=== PATIENT | female | born 1950 | race Two or more races ===

== ENCOUNTER 2017-06-16 08:56 | Outpatient (CLI) | payer OTHER ==
[~2017-06-16 08:56] MED LIST: COREG CR10 MG PO; EVISTA60 MG PO; NABUMETONE500 MG PO; NEURONTIN600 MG PO; NEUROTIN; PERCOCET 5/3251 TAB PO; PROTONIX20 MG PO; SYNTHROID50 MCG PO; ULTRACET PO
== END 2017-06-16 09:02 | disposition home or self-care (01) ==
LOC: RAD 08:56
DX: R05 Cough (principal); J41.1 Mucopurulent chronic bronchitis

== ENCOUNTER 2017-08-29 05:55 | Day surgery (SDC) | payer OTHER | END 2017-08-29 09:35 | disposition home or self-care (01) | LOC: AMB-ENDOS 05:55 | DX: K57.30 Diverticulosis of large intestine without perforation or abscess without bleeding (principal); K64.1 Second degree hemorrhoids; K62.1 Rectal polyp ==

== ENCOUNTER 2017-09-20 08:59 | Outpatient (CLI) | payer OTHER | END 2017-09-20 09:02 | disposition home or self-care (01) | LOC: SONOGRAMA 08:59 | DX: E21.2 Other hyperparathyroidism (principal); E04.1 Nontoxic single thyroid nodule; E83.52 Hypercalcemia ==

== ENCOUNTER 2017-09-22 09:49 | Outpatient (CLI) | payer OTHER | END 2017-09-22 11:00 | disposition home or self-care (01) | LOC: NUCLEAR 09:49 | DX: E21.2 Other hyperparathyroidism (principal); E83.52 Hypercalcemia | CPT/HCPCS: 78070; A9500 ==

== ENCOUNTER 2017-12-12 08:40 | Outpatient (CLI) | payer OTHER | END 2017-12-12 09:15 | disposition home or self-care (01) | LOC: SONOGRAMA 08:40 | DX: E03.4 Atrophy of thyroid (acquired) (principal) ==

== ENCOUNTER 2018-01-27 10:07 | Outpatient (CLI) | payer OTHER | END 2018-01-27 10:15 | disposition home or self-care (01) | LOC: RAD 10:07 | DX: M54.6 Pain in thoracic spine (principal) ==

== ENCOUNTER 2018-01-27 11:03 | Outpatient (CLI) | payer OTHER | END 2018-01-27 11:33 | disposition home or self-care (01) | LOC: SONOGRAMA 11:03 | DX: M25.512 Pain in left shoulder (principal) ==

== ENCOUNTER 2018-07-21 09:50 | Outpatient (CLI) | payer OTHER | END 2018-07-21 10:00 | disposition home or self-care (01) | LOC: RAD 09:50 | DX: I11.9 Hypertensive heart disease without heart failure (principal) ==

== ENCOUNTER 2018-11-14 09:44 | Outpatient (CLI) | payer OTHER | END 2018-11-14 09:46 | disposition home or self-care (01) | LOC: RAD 09:44 | DX: Z96.652 Presence of left artificial knee joint (principal) ==

== ENCOUNTER 2019-02-28 12:10 | Outpatient (CLI) | payer OTHER | END 2019-02-28 12:12 | disposition home or self-care (01) | LOC: RAD 12:10 | DX: M54.6 Pain in thoracic spine (principal); M54.5 Low back pain ==

== ENCOUNTER 2019-04-27 05:35 | Day surgery (SDC) | payer OTHER ==
[~2019-04-27 05:35] MED LIST changes: +TIZANIDINE HCL2 MG PO
[2019-04-27] MEDS ORDERED: PERCOCET 5-3251 EACH PO (08:29)
== END 2019-04-27 10:01 | disposition home or self-care (01) ==
LOC: CIR.AMB 05:35
DX: R15.9 Full incontinence of feces (principal)
CPT/HCPCS: 64590; C1767

== ENCOUNTER → 2019-05-25 | Outpatient (CLI) | payer OTHER ==
[~2019-05-25] MED LIST changes: +PERCOCET 5-3251 EACH PO
== END | disposition home or self-care (01) ==
LOC: TOM 08:29
DX: R10.11 Right upper quadrant pain (principal); R10.12 Left upper quadrant pain; R07.89 Other chest pain

== ENCOUNTER 2019-05-31 09:15 | Outpatient (CLI) | payer OTHER | END 2019-05-31 09:17 | disposition home or self-care (01) | LOC: SONOGRAMA 09:15 | DX: C79.19 Secondary malignant neoplasm of other urinary organs (principal); R10.11 Right upper quadrant pain; R10.12 Left upper quadrant pain ==

== ENCOUNTER 2019-06-25 07:14 | Outpatient (CLI) | payer OTHER | END 2019-06-25 08:57 | disposition home or self-care (01) | LOC: NUCLEAR 07:14 | DX: M81.0 Age-related osteoporosis without current pathological fracture (principal); M85.80 Other specified disorders of bone density and structure, unspecified site | CPT/HCPCS: 77080; 78072; A9500 ==

== ENCOUNTER 2019-06-28 08:34 | Outpatient (CLI) | payer OTHER | END 2019-06-28 08:38 | disposition home or self-care (01) | LOC: NUCLEAR 08:34 | DX: E83.52 Hypercalcemia (principal); E78.00 Pure hypercholesterolemia, unspecified; M85.80 Other specified disorders of bone density and structure, unspecified site; M46.47 Discitis, unspecified, lumbosacral region | CPT/HCPCS: 78306; A9503 ==

== ENCOUNTER 2019-07-10 10:28 | Outpatient (CLI) | payer OTHER | END 2019-07-10 10:35 | disposition home or self-care (01) | LOC: LAB 10:28 | DX: N20.0 Calculus of kidney (principal) ==

== ENCOUNTER 2019-07-10 10:58 | Outpatient (CLI) | payer OTHER | END 2019-07-10 11:03 | disposition home or self-care (01) | LOC: TOM 10:58 | DX: N28.1 Cyst of kidney, acquired (principal) | CPT/HCPCS: 74178; Q9965 ==

== ENCOUNTER 2019-07-23 08:11 | Outpatient (CLI) | payer OTHER | END 2019-07-23 09:52 | disposition home or self-care (01) | LOC: NUCLEAR 08:11 | DX: D35.1 Benign neoplasm of parathyroid gland (principal); E03.4 Atrophy of thyroid (acquired); E21.3 Hyperparathyroidism, unspecified | CPT/HCPCS: 78070; A9500 ==

== ENCOUNTER 2020-11-04 15:55 | Outpatient (CLI) | payer OTHER | END 2020-11-04 16:01 | disposition home or self-care (01) | LOC: SONOGRAMA 15:55 | PROVIDERS: ATTEND Physical Medicine & Rehabilitation | DX: E03.4 Atrophy of thyroid (acquired) (principal) ==

== ENCOUNTER 2020-12-01 07:32 | Outpatient (CLI) | payer OTHER | END 2020-12-01 07:38 | disposition home or self-care (01) | LOC: SONOGRAMA 07:32 | PROVIDERS: ATTEND Pathology Anatomic Pathology & Clinical Pathology | DX: E04.0 Nontoxic diffuse goiter (principal); D34 Benign neoplasm of thyroid gland ==

== ENCOUNTER 2021-04-29 09:06 | Outpatient (CLI) | payer OTHER | END 2021-04-29 09:10 | disposition home or self-care (01) | LOC: RAD 09:06 | PROVIDERS: ATTEND Internal Medicine | DX: M13.871 Other specified arthritis, right ankle and foot (principal); M79.671 Pain in right foot ==

== ENCOUNTER 2021-12-15 15:31 | Outpatient (CLI) | payer OTHER | END 2021-12-15 15:37 | disposition home or self-care (01) | LOC: RAD 15:31 | PROVIDERS: ATTEND Internal Medicine | DX: M79.641 Pain in right hand (principal) ==

== ENCOUNTER 2022-03-11 09:03 | Outpatient (CLI) | payer OTHER | END 2022-03-11 09:07 | disposition home or self-care (01) | LOC: NUCLEAR 09:03 | PROVIDERS: ATTEND Internal Medicine | DX: M85.80 Other specified disorders of bone density and structure, unspecified site (principal); Z88.0 Allergy status to penicillin; Z88.8 Allergy status to other drugs, medicaments and biological substances ==

== ENCOUNTER 2022-03-16 07:49 | Outpatient (CLI) | payer OTHER | END 2022-03-16 07:52 | disposition home or self-care (01) | LOC: SONOGRAMA 07:49 | PROVIDERS: ATTEND Internal Medicine | DX: K82.9 Disease of gallbladder, unspecified (principal) ==

== ENCOUNTER 2023-01-28 06:42 | Day surgery (SDC) | payer OTHER ==
[~2023-01-28] VITALS: Ht 154.9 cm; Wt 81.6 kg
== END 2023-01-28 15:15 | disposition home or self-care (01) ==
LOC: CIR.AMB 06:42
PROVIDERS: ATTEND Surgery
DX: R15.9 Full incontinence of feces (principal); K62.5 Hemorrhage of anus and rectum; K64.0 First degree hemorrhoids; Z20.822 Contact with and (suspected) exposure to COVID-19; I10 Essential (primary) hypertension; Z88.0 Allergy status to penicillin
CPT/HCPCS: 64590; 64581; 95972; C1767

== ENCOUNTER → 2023-03-21 | Outpatient (CLI) | payer OTHER | END | disposition home or self-care (01) | LOC: TOM 10:24 | PROVIDERS: ATTEND Internal Medicine | DX: M54.30 Sciatica, unspecified side (principal); M54.50 Low back pain, unspecified ==

== ENCOUNTER 2023-07-21 07:47 | Outpatient (CLI) | payer OTHER | END 2023-07-21 07:50 | disposition home or self-care (01) | LOC: RAD 07:47 | PROVIDERS: ATTEND Internal Medicine | DX: M79.674 Pain in right toe(s) (principal); M79.675 Pain in left toe(s) ==

== ENCOUNTER 2023-08-29 07:13 | Outpatient (CLI) | payer OTHER | END 2023-08-29 07:32 | disposition home or self-care (01) | LOC: TOM 07:13 | PROVIDERS: ATTEND Urology | DX: C64.9 Malignant neoplasm of unspecified kidney, except renal pelvis (principal) | CPT/HCPCS: 74178; Q9965 ==

== ENCOUNTER 2024-01-05 07:45 | Outpatient (CLI) | payer OTHER | END 2024-01-05 07:56 | disposition home or self-care (01) | LOC: RAD 07:45 | PROVIDERS: ATTEND Internal Medicine | DX: M17.0 Bilateral primary osteoarthritis of knee (principal) ==

== ENCOUNTER 2024-01-09 09:14 | Emergency (ER) | payer OTHER ==
[~2024-01-09] VITALS: Ht 154.9 cm; Wt 83.9 kg
[2024-01-09] MEDS ORDERED: KETOROLAC TROMETHAMINE 30 MG VIAL IM STA (10:22)
[2024-01-09] MEDS ORDERED: DEXAMETHASONE SODIUM PHOSPHATE 4 MG/ML VIAL IM STA (10:23)
[2024-01-09] MEDS ORDERED: ORPHENADRINE CITRATE 30 MG/ML AMPUL IM STA (10:23)
== END 2024-01-09 11:03 | disposition home or self-care (01) ==
LOC: ER 09:15
DX: M54.32 Sciatica, left side (principal); Z88.0 Allergy status to penicillin
CPT/HCPCS: 96372; 99282; J1100; J1885; J2360

== ENCOUNTER 2024-01-23 13:19 | Outpatient (CLI) | payer OTHER | END 2024-01-23 13:27 | disposition home or self-care (01) | LOC: TOM 13:19 | PROVIDERS: ATTEND Physical Medicine & Rehabilitation | DX: M54.50 Low back pain, unspecified (principal); M54.16 Radiculopathy, lumbar region ==

== ENCOUNTER 2024-04-06 08:39 | Outpatient (CLI) | payer OTHER | END 2024-04-06 08:45 | disposition home or self-care (01) | LOC: RAD 08:39 | PROVIDERS: ATTEND Orthopaedic Surgery Adult Reconstructive Orthopaedic Surgery | DX: I11.9 Hypertensive heart disease without heart failure (principal) ==

== ENCOUNTER 2024-12-29 11:58 | Inpatient (IN) | payer OTHER ==
[~2024-12-29] VITALS: Ht 157.5 cm; Wt 68.0 kg
[2024-12-29] MEDS ORDERED: 0.9 % SODIUM CHLORIDE 1,000 ML IV SCH ×3 (14:45→22:00)
[2024-12-29] MEDS ORDERED: ONDANSETRON HCL 2 MG/ML VIAL IV ONE (14:45)
[2024-12-29] MEDS ORDERED: FAMOTIDINE/PF 20 MG/2 ML VIAL IV PUSH ONE (14:45)
[2024-12-29] MEDS ORDERED: ONDANSETRON HCL 2 MG/ML VIAL ONE (15:16)
[2024-12-29] MEDS ORDERED: FAMOTIDINE/PF 20 MG/2 ML VIAL ONE (15:16)
[2024-12-29 16:01] LABS: BASO % 0.5 % (0.1-1.2); EOS # 0.00 (0.04-0.54); EOS % 0.0 % (0.7-7.0); LYMPH # 0.99 (1.18-3.74); LYMPH % 11.4 % (19.3-53.1); MEAN PLATELET VOLUME 10.40 fl (9.4-12.4); MONO # 0.50 (0.24-0.82); MONO % 5.8 % (4.7-12.5); NEUT # 7.08 (1.56-6.13); NEUT % 81.8 % (34.0-71.1); RED CELL DISTRIBUTION WIDTH 14.6 % (11.6-14.4)
[2024-12-29 16:39] LABS: ALT/SGPT 17.0 U/L (12-78); AST/SGOT 9.0 U/L (15-37); BILIRUBIN TOTAL 0.78 mg/dL (0.3-1.2); BILIRUBIN,CONJUGATED 0.18 mg/dL (0.0-0.2); BUN CREA RATIO 22.0 (7.0-25.0); CREATININE SERUM 1.15 mg/dL (0.55-1.02); GFR 46.38; GLOBULINA 3.7 G/DL (2.4-3.5)
[2024-12-29 17:14] LABS: GLUCOSE FASTING 489.0 mg/dL (65-100); OSMOLALITY SERUM 298.0 MOSM/KG (275-295)
[2024-12-29] MEDS ORDERED: INSULIN LISPRO 1,000 UNIT/10 ML UNITS SUBCUTANEO STA (17:31)
[2024-12-29 18:29] LABS: URINE APPEARANCE Cloudy; URINE BILIRRUBIN Negative (NEGATIVE); URINE BLOOD Trace; URINE COLOR Yellow; URINE LEUKOCYTE Trace; URINE NITRATE Negative; URINE UROBILINOGEN 0.2 E.U./dl
[2024-12-29 18:33] LABS: URINE BACTERIA 230.3 uL (0.0-1933); URINE CAST 2.49 uL (0.0-1.40); URINE EPITHELIAL CELLS 38.9 uL (0.0-38.8); URINE RBC 222.1 uL (0.0-20.8); URINE WBC 253.3 uL (0.0-23.2)
[2024-12-29 18:47] LABS: URINE GLUCOSE >=1000 MG/DL (NEGATIVE); URINE KETONE >=160 (NEGATIVE); URINE PROTEIN 100 (NEGATIVE)
[2024-12-29 18:48] LABS: URINE YEAST MANY /hpf
[2024-12-29 18:50] LABS: ABG PH 7.238 (7.35-7.45); ABG PO2 121.0 mmHg (80-100); BICARBONATE 6.0 mmol/l (23-25)
[2024-12-29] MEDS ORDERED: ONDANSETRON HCL 4 MG in 0.9 % SODIUM CHLORIDE 50 ML IV PRN (19:30)
[2024-12-29] MEDS ORDERED: INSULIN REGULAR, HUMAN 100 UNITS in 0.9 % SODIUM CHLORIDE 100 ML IV SCH (19:45)
[2024-12-29 19:51] LABS: o2 21 %
[2024-12-29] MEDS ORDERED: POTASSIUM CHLORIDE IN WATER 100 ML IV ONE (20:15)
[2024-12-29 22:48] VITALS: BP 135/85
[2024-12-29] MEDS ORDERED: ACETAMINOPHEN 325 MG TABLET PO PRN (23:00)
[2024-12-29 23:58] VITALS: BP 105/73; O2SAT 100
[2024-12-30 04:00] VITALS: BP 113/75; O2SAT 98
[2024-12-30 05:12] LABS: COVID-19 AG NEGATIVE (NEGATIVE)
[2024-12-30 05:31] LABS: OSMOLALITY SERUM 299.0 MOSM/KG (275-295)
[2024-12-30 05:38] LABS: TSH 0.8 uIU/mL (0.358-3.74)
[2024-12-30 05:39] LABS: GLUCOSE FASTING 227.0 mg/dL (65-100)
[2024-12-30 05:52] LABS: BUN CREA RATIO 27.0 (7.0-25.0); CREATININE SERUM 0.78 mg/dL (0.55-1.02); GFR 72.6
[2024-12-30] MEDS ORDERED: LEVOTHYROXINE SODIUM 50 MCG TABLET PO SCH (06:00)
[2024-12-30 06:15] LABS: OSMOLALITY SERUM 300.0 MOSM/KG (275-295)
[2024-12-30 06:17] LABS: GLUCOSE FASTING 220.0 mg/dL (65-100)
[2024-12-30 06:34] LABS: ABG PH 7.250 (7.35-7.45); ABG PO2 177.8 mmHg (80-100); BICARBONATE 9.2 mmol/l (23-25)
[2024-12-30 06:45] LABS: o2 28 %
[2024-12-30] MEDS ORDERED: SODIUM BICARBONATE 1 MEQ/ML DISP.SYRIN 50ML IV STA (06:49)
[2024-12-30] MEDS ORDERED: SODIUM BICARBONATE 1 MEQ/ML DISP.SYRIN 50ML IV ONE (07:00)
[2024-12-30 07:18] VITALS: BP 103/54; O2SAT 97
[2024-12-30] MEDS ORDERED: DEXTROSE 5 % AND 0.9 % NACL 1,000 ML IV SCH (08:00)
[2024-12-30] MEDS ORDERED: POTASSIUM CHLORIDE IN WATER 40 MEQ/100 ML PIGGYBAG IV SCH ×2 (09:00→20:17)
[2024-12-30] MEDS ORDERED: CARVEDILOL 12.5 MG TABLET PO SCH (09:00)
[2024-12-30] MEDS ORDERED: ENOXAPARIN SODIUM 40 MG/0.4 ML SYRINGE SUBCUTANEO SCH (09:00)
[2024-12-30] MEDS ORDERED: PANTOPRAZOLE SODIUM 40 MG/VIAL VIAL IV SCH (09:00)
[2024-12-30 09:36] VITALS: BP 90/67; O2SAT 99
[2024-12-30] MEDS ORDERED: POTASSIUM PHOS,M-BASIC-D-BASIC 3 MM/ML VIAL IV SCH (14:00)
[2024-12-30] MEDS ORDERED: SODIUM BICARBONATE 50MEQ/50ML VIAL IV NR (14:15)
[2024-12-30 15:21] VITALS: BP 96/53; O2SAT 98
[2024-12-30 19:00] VITALS: BP 109/42; O2SAT 100
[2024-12-30 19:22] LABS: BUN CREA RATIO 17.0 (7.0-25.0); CREATININE SERUM 0.76 mg/dL (0.55-1.02); GFR 74.81
[2024-12-30 19:25] LABS: OSMOLALITY SERUM 300.0 MOSM/KG (275-295)
[2024-12-30 19:26] LABS: GLUCOSE FASTING 207.0 mg/dL (65-100)
[2024-12-30] MEDS ORDERED: DEXTROSE 5 %-0.45 % SOD CHLORD 1,000 ML IV SCH (20:00)
[2024-12-30] MEDS ORDERED: MAGNESIUM SULFATE IN WATER 50 ML IV ONE (20:30)
[2024-12-30 23:22] VITALS: O2SAT 100
[2024-12-31] VITALS (10 sets, daily range): BP systolic 89–117; BP diastolic 36–63; O2SAT 100
[2024-12-31] MEDS ORDERED: DEXTROSE 50 % IN WATER 0.5 G/ML DISP.SYRIN IV PRN (07:15)
[2024-12-31] MEDS ORDERED: INSULIN LISPRO 1,000 UNIT/10 ML UNITS SUBCUTANEO PRN ×2 (07:15)
[2024-12-31] MEDS ORDERED: DEXTROSE 50 % IN WATER 0.5 G/ML VIAL IV PRN (07:15)
[2024-12-31] MEDS ORDERED: INSULIN NPH HUMAN ISOPHANE 1,000 UNITS/10 ML UNITS SUBCUTANEO SCH ×2 (09:00)
[2024-12-31 09:02] LABS: BASO % 0.6 % (0.1-1.2); EOS # 0.05 (0.04-0.54); EOS % 1.1 % (0.7-7.0); LYMPH # 0.86 (1.18-3.74); LYMPH % 18.6 % (19.3-53.1); MEAN PLATELET VOLUME 11.20 fl (9.4-12.4); MONO # 0.41 (0.24-0.82); MONO % 8.9 % (4.7-12.5); NEUT # 3.25 (1.56-6.13); NEUT % 70.4 % (34.0-71.1); RED CELL DISTRIBUTION WIDTH 14.6 % (11.6-14.4)
[2024-12-31 09:27] LABS: ALT/SGPT 11.0 U/L (12-78); AST/SGOT 11.0 U/L (15-37); BILIRUBIN TOTAL 0.57 mg/dL (0.3-1.2); BUN CREA RATIO 12.0 (7.0-25.0); CREATININE SERUM 0.59 mg/dL (0.55-1.02); GFR 100.19; GLOBULINA 2.2 G/DL (2.4-3.5); GLUCOSE FASTING 170.0 mg/dL (65-100); OSMOLALITY SERUM 291.0 MOSM/KG (275-295)
[2024-12-31 10:23] LABS: ABG PH 7.397 (7.35-7.45); ABG PO2 173.3 mmHg (80-100); BICARBONATE 22.0 mmol/l (23-25); o2 32 %
[2024-12-31 23:23] LABS: INR 1.01
[2025-01-01] VITALS (9 sets, daily range): BP systolic 92–103; BP diastolic 50–58; O2SAT 90–99
[2025-01-01] MEDS ORDERED: SODIUM CHLORIDE 0.45 % 1,000 ML IV SCH (07:30)
[2025-01-01] MEDS ORDERED: MAGNESIUM SULFATE IN WATER 50 ML IV SCH (08:00)
[2025-01-01] MEDS ORDERED: INSULIN GLARGINE,HUM.REC.ANLOG 1,000 UNITS/10 ML UNITS SUBCUTANEO SCH (09:00)
[2025-01-01] MEDS ORDERED: POTASSIUM BICARBONATE/CIT AC 25 MEQ TABLET.EFF PO SCH (09:00)
[2025-01-01] MEDS ORDERED: POTASSIUM CHLORIDE IN WATER 40 MEQ/100 ML PIGGYBAG IV SCH (12:00)
[2025-01-01] MEDS ORDERED: POTASSIUM PHOS,M-BASIC-D-BASIC 18 MM in 0.9 % SODIUM CHLORIDE 500 ML IV SCH (17:00)
[2025-01-02] VITALS (9 sets, daily range): BP systolic 93–114; BP diastolic 65–72; O2SAT 90–100
[2025-01-02 12:49] LABS: BASO % 0.5 % (0.1-1.2); EOS # 0.05 (0.04-0.54); EOS % 1.4 % (0.7-7.0); LYMPH # 0.97 (1.18-3.74); LYMPH % 26.6 % (19.3-53.1); MEAN PLATELET VOLUME 11.30 fl (9.4-12.4); MONO # 0.37 (0.24-0.82); MONO % 10.2 % (4.7-12.5); NEUT # 2.21 (1.56-6.13); NEUT % 60.8 % (34.0-71.1); RED CELL DISTRIBUTION WIDTH 15.4 % (11.6-14.4)
[2025-01-02 12:54] LABS: INR 1.05
[2025-01-02 13:06] LABS: ALT/SGPT 17.0 U/L (12-78); AST/SGOT 20.0 U/L (15-37); BILIRUBIN TOTAL 0.79 mg/dL (0.3-1.2); BUN CREA RATIO 7.0 (7.0-25.0); CREATININE SERUM 0.46 mg/dL (0.55-1.02); GFR 133.53; GLOBULINA 2.2 G/DL (2.4-3.5); GLUCOSE FASTING 225.0 mg/dL (65-100); OSMOLALITY SERUM 292.0 MOSM/KG (275-295)
[2025-01-02] MEDS ORDERED: METOCLOPRAMIDE HCL 10 MG in DEXTROSE 5 % IN WATER 50 ML IV SCH (19:35)
[2025-01-02] MEDS ORDERED: PANTOPRAZOLE SODIUM 40 MG TABLET.DR PO SCH (21:00)
[2025-01-03] VITALS (8 sets, daily range): BP systolic 93–101; BP diastolic 59–68; O2SAT 95–100
[2025-01-03 15:21] LABS: BUN CREA RATIO 8.0 (7.0-25.0); CREATININE SERUM 0.39 mg/dL (0.55-1.02); GFR 161.55; OSMOLALITY SERUM 293.0 MOSM/KG (275-295)
[2025-01-03 15:22] LABS: GLUCOSE FASTING 243.0 mg/dL (65-100)
[2025-01-04] VITALS (8 sets, daily range): BP systolic 98–128; BP diastolic 57–78; O2SAT 90–100
[2025-01-05] VITALS (9 sets, daily range): BP systolic 99–107; BP diastolic 55–65; O2SAT 90–100
[2025-01-05 08:04] LABS: URINE APPEARANCE Cloudy; URINE BILIRRUBIN Negative (NEGATIVE); URINE BLOOD Small; URINE COLOR Yellow; URINE KETONE Trace (NEGATIVE); URINE LEUKOCYTE Large; URINE NITRATE Negative; URINE PROTEIN 30 (NEGATIVE); URINE UROBILINOGEN 1.0 E.U./dl
[2025-01-05 08:10] LABS: URINE BACTERIA 4428.0 uL (0.0-1933); URINE EPITHELIAL CELLS 5.2 uL (0.0-38.8); URINE RBC 150.3 uL (0.0-20.8); URINE WBC 3425.1 uL (0.0-23.2)
[2025-01-05 08:18] LABS: BASO % 0.6 % (0.1-1.2); EOS # 0.05 (0.04-0.54); EOS % 1.4 % (0.7-7.0); LYMPH # 1.07 (1.18-3.74); LYMPH % 30.8 % (19.3-53.1); MEAN PLATELET VOLUME 11.00 fl (9.4-12.4); MONO # 0.45 (0.24-0.82); NEUT # 1.87 (1.56-6.13); NEUT % 53.9 % (34.0-71.1); RED CELL DISTRIBUTION WIDTH 15.3 % (11.6-14.4)
[2025-01-05 08:19] LABS: MONO % 13.0 % (4.7-12.5)
[2025-01-05 08:57] LABS: URINE CAST 0.43 uL (0.0-1.40); URINE GLUCOSE 100 MG/DL (NEGATIVE)
[2025-01-05 08:59] LABS: URINE YEAST MODERATE /hpf
[2025-01-05] MEDS ORDERED: INSULIN GLARGINE,HUM.REC.ANLOG 1,000 UNITS/10 ML UNITS SUBCUTANEO SCH (09:00)
[2025-01-05] MEDS ORDERED: AZTREONAM 1,000 MG in 0.9 % SODIUM CHLORIDE 50 ML IV SCH (19:29)
[2025-01-06] VITALS (10 sets, daily range): BP systolic 110–155; BP diastolic 67–76; O2SAT 89–99
[2025-01-06] MEDS ORDERED: INSULIN LISPRO 1,000 UNIT/10 ML UNITS SUBCUTANEO SCH (12:00)
[2025-01-07] VITALS (9 sets, daily range): BP systolic 106–149; BP diastolic 63–79; O2SAT 85–98
[2025-01-07 06:56] LABS: URINE APPEARANCE Clear; URINE BILIRRUBIN Negative (NEGATIVE); URINE BLOOD Negative; URINE COLOR Yellow; URINE GLUCOSE Negative (NEGATIVE); URINE KETONE Trace (NEGATIVE); URINE LEUKOCYTE Trace; URINE NITRATE Negative; URINE PROTEIN Trace (NEGATIVE); URINE UROBILINOGEN 1.0 E.U./dl
[2025-01-07 07:00] LABS: URINE BACTERIA 4224.9 uL (0.0-1933); URINE EPITHELIAL CELLS 29.6 uL (0.0-38.8); URINE RBC 12.6 uL (0.0-20.8); URINE WBC 74.1 uL (0.0-23.2)
[2025-01-07 07:05] LABS: URINE CAST 0.14 uL (0.0-1.40)
[2025-01-07] MEDS ORDERED: INSULIN GLARGINE,HUM.REC.ANLOG 1,000 UNITS/10 ML UNITS SUBCUTANEO SCH (09:00)
[2025-01-07] MEDS ORDERED: METOCLOPRAMIDE HCL 10 MG TABLET PO SCH (16:00)
[2025-01-08 00:21] VITALS: BP 102/67
[2025-01-08 00:25] VITALS: O2SAT 92
[2025-01-08 04:55] VITALS: O2SAT 90
[2025-01-08 07:49] VITALS: O2SAT 96
[2025-01-08 09:04] VITALS: BP 99/63; O2SAT 99
[2025-01-08] MEDS ORDERED: CARVEDILOL12.5 MG PO (10:56)
[2025-01-08] MEDS ORDERED: METOCLOPRAMIDE10 MG PO (10:56)
[2025-01-08] MEDS ORDERED: INSULIN LI100 UNIT/1 SUBCUTANEO ×2 (10:57→10:58)
[2025-01-08] MEDS ORDERED: PROTONIX20 MG PO (10:57)
[2025-01-08] MEDS ORDERED: Lantus 1000 UNITS/10 SUBCUTANEO (10:57)
[2025-01-08] MEDS ORDERED: LEVOTHYROXINE50 MCG PO (10:58)
[2025-01-08] MEDS ORDERED: ZANAFLEX4 M1 PO (10:59)
[2025-01-08] MEDS ORDERED: SYMBICORT 16010.2 GM IH (10:59)
[2025-01-08] MEDS ORDERED: ELIQUIS2.5 MG PO (11:00)
[2025-01-08] MEDS ORDERED: FLUCONAZOLE200 MG PO (11:03)
[2025-01-08] MEDS ORDERED: LEVOFLOXACIN250 MG PO (11:04)
== END 2025-01-08 11:51 | disposition home or self-care (01) | DRG 638 ==
LOC: ER 11:58 → ICU-2 20:03 → SEC-K 12-31 10:13 → MEDJ 12-31 14:03 → MEDI 01-04 11:36
PROVIDERS: Emergency Medicine; General Practice; Internal Medicine; Internal Medicine Infectious Disease; ADMIT Internal Medicine; ATTEND Internal Medicine
PROC: B020ZZZ Computerized Tomography (CT Scan) of Brain (ICD-10-PCS; principal; 2024-12-29)
PROC: BW21ZZZ Computerized Tomography (CT Scan) of Abdomen and Pelvis (ICD-10-PCS; 2024-12-29)
PROC: BB24ZZZ Computerized Tomography (CT Scan) of Bilateral Lungs (ICD-10-PCS; 2024-12-29)
PROC: 4A12X4Z Monitoring of Cardiac Electrical Activity, External Approach (ICD-10-PCS; 2024-12-30)
PROC: 3E0F7SF Introduction of Other Gas into Respiratory Tract, Via Natural or Artificial Opening (ICD-10-PCS; 2024-12-30)
DX: E11.10 Type 2 diabetes mellitus with ketoacidosis without coma (principal); B37.49 Other urogenital candidiasis; C64.1 Malignant neoplasm of right kidney, except renal pelvis; N17.9 Acute kidney failure, unspecified; D84.89 Other immunodeficiencies; K52.9 Noninfective gastroenteritis and colitis, unspecified; D69.6 Thrombocytopenia, unspecified; E86.0 Dehydration; R41.82 Altered mental status, unspecified; I12.9 Hypertensive chronic kidney disease with stage 1 through stage 4 chronic kidney disease, or unspecified chronic kidney disease; N18.9 Chronic kidney disease, unspecified; E03.9 Hypothyroidism, unspecified; B95.2 Enterococcus as the cause of diseases classified elsewhere; Z88.0 Allergy status to penicillin; Z95.828 Presence of other vascular implants and grafts